=== PATIENT | female | born 1960 | race Caucasian/White ===

== ENCOUNTER 2023-11-17 11:55 | Inpatient (IN) | payer BC ==
[~2023-11-17] VITALS: Ht 162.6 cm; Wt 69.8 kg
[2023-11-17] VITALS (8 sets, daily range): BP systolic 120–134; BP diastolic 60–99; PULSE 65–74
[2023-11-17] MEDS ORDERED: Ondansetron 4 MG/2 ML VIAL IV ONE (12:30)
[2023-11-17] MEDS ORDERED: LR 1,000 ML IV ONE (12:30)
[2023-11-17] MEDS ORDERED: Morphine 4 MG/ML VIAL IV ONE (12:30)
[2023-11-17 12:38] LABS: BASO # 0.1 K/mm3 (0.0-0.2); BASO % 0.6 % (0.0-2.0); EOS % 0.1 % (0.0-4.0); GRAN # 9.6 K/mm3 (1.4-6.5); GRAN % 88.8 % (42.2-75.2); HEMATOCRIT 45.6 % (37.0-47.0); HEMOGLOBIN 14.8 g/dl (12.5-16.0); LYMPH # 0.7 K/mm3 (1.2-3.4); LYMPH % 6.2 % (20.0-51.0); MEAN CELL VOLUME 87 fl (80.0-100.0); MEAN CORPUSCULAR HEMOGLOBIN 28 pg (27-31); MEAN CORPUSCULAR HGB CONC 33 g/dl (33.0-37.0); MEAN PLATELET VOLUME 10.3 fl (7.4-10.4); MONO # 0.4 K/mm3 (0.1-0.6); PLATELET COUNT 247 K/mm3 (130-400); RED BLOOD COUNT 5.24 M/mm3 (4.10-5.30); REDCELL DISTRIBUTION WIDTH-CV 12.3 % (11.5-14.5)
[2023-11-17 12:58] LABS: ALBUMIN 4.1 g/dL (3.4-4.8); BILIRUBIN,TOTAL 1.1 mg/dL (0.2-1.2); C-REACTIVE PROTEIN 4.93 mg/dL (0.00-0.50); CALCIUM 9.6 mg/dL (8.4-10.2); CREATININE, serum 0.79 mg/dL (0.57-1.11); POTASSIUM 3.5 mEq/L (3.5-4.5); TOTAL PROTEIN 7.2 g/dl (6.2-8.1)
[2023-11-17] MEDS ORDERED: Iohexol 300 - 100 ML VIAL IV ONE (13:35)
[2023-11-17] MEDS ORDERED: NS 100 ML IV SCH (13:36)
[2023-11-17 14:01] LABS: PH 5.5 (5.0-8.5); URINE APPEARANCE CLOUDY (CLEAR/HAZY); URINE BLOOD NEGATIVE (NEGATIVE); URINE COLOR Dark Yellow (YELLOW); URINE GLUCOSE NEGATIVE (NEGATIVE); URINE KETONE 3+ (NEGATIVE); URINE NITRATE NEGATIVE (NEGATIVE); URINE PROTEIN(semi-quant) 1+ (NEGATIVE)
[2023-11-17 14:26] LABS: COLLECTION METHOD CLEAN CATCH
[2023-11-17] MEDS ORDERED: NS 1,000 ML IV SCH (15:45)
[2023-11-17] MEDS ORDERED: PRINIVIL10 MG PO (16:01)
[2023-11-17] MEDS ORDERED: ESTRACE0.5 MG PO (16:01)
[2023-11-17] MEDS ORDERED: ASPIRIN 81M81 MG/TA2 PO (16:05)
[2023-11-17] MEDS ORDERED: Glycopyrrolate 0.2 MG/ML 1 ML VIAL ONE (16:10)
[2023-11-17] MEDS ORDERED: Ondansetron 4 MG/2 ML VIAL ONE (16:10)
[2023-11-17] MEDS ORDERED: NS 20 ML IV ONE (16:10)
[2023-11-17] MEDS ORDERED: dexAMETHasone 10 MG/ML VIAL ONE (16:10)
[2023-11-17] MEDS ORDERED: Rocuronium 50 MG/5 ML Multi-Dose VIAL ONE (16:13)
[2023-11-17] MEDS ORDERED: fentaNYL 50 MCG/ML 2 ML VIAL ONE ×2 (16:13→18:02)
[2023-11-17] MEDS ORDERED: Midazolam 2 MG/2 ML VIAL ONE (16:13)
[2023-11-17] MEDS ORDERED: NS 250 ML IV ONE (16:15)
[2023-11-17] MEDS ORDERED: Phenylephrine 10 MG/ML VIAL ONE (16:15)
[2023-11-17] MEDS ORDERED: Naloxone 0.4 MG/ML VIAL IV PRN (19:00)
[2023-11-17] MEDS ORDERED: Morphine 4 MG/ML VIAL IV PRN (19:00)
[2023-11-17] MEDS ORDERED: Ibuprofen 400 MG TAB PO PRN (19:00)
[2023-11-17] MEDS ORDERED: LR 1,000 ML IV SCH (19:00)
[2023-11-17] MEDS ORDERED: oxyCODONE 5 MG TAB PO PRN (19:00)
[2023-11-17] MEDS ORDERED: *Potassium Replacement Protocol MC SCH ×2 (19:00→20:30)
[2023-11-17] MEDS ORDERED: Ondansetron 4 MG/2 ML VIAL IV PRN ×2 (19:00→19:15)
[2023-11-17] MEDS ORDERED: Ketorolac 30 MG/ML VIAL IV PRN (19:15)
[2023-11-17] MEDS ORDERED: hydrALAZINE 20 MG/ML 1 ML VIAL IV PRN (19:15)
[2023-11-17] MEDS ORDERED: fentaNYL 50 MCG/ML 1 ML SYRINGE/VIAL [PACU/SDC ONLY] IV PRN (19:15)
[2023-11-17] MEDS ORDERED: HYDROmorphone 1 MG/1 ML SYRINGE [PACU/SDC ONLY] IV PRN (19:15)
[2023-11-17] MEDS ORDERED: Acetaminophen 500 MG TAB PO SCH (20:00)
[2023-11-17] MEDS ORDERED: Potassium Chloride 100 ML IV SCH (20:30)
--- NOTE | 2023-11-17 21:30 | NUR ---
Patient arrived to the floor from PACU at 1940 per cart with PACU nurse Asia, A/O, reports pain is minimal with 3/10 as her score, admission assessment and intake done, medrec reviewed, hospital policies orientated, supportive at bedside. Patient denies nausea, with IV infusing well on left antecubital with LR via gravity, on room air, VSS, SCD's on, with midline dressing clean, dry and intact, ice chips given, potassium ongoing replacement, will continue to monitor.
[2023-11-18] VITALS (10 sets, daily range): BP systolic 97–108; BP diastolic 56–64; PULSE 55–69; TEMP 97.6–98.7
[2023-11-18 07:03] LABS: BASO % 0.4 % (0.0-2.0); EOS # 0.1 K/mm3 (0.0-0.7); EOS % 0.5 % (0.0-4.0); GRAN # 9.2 K/mm3 (1.4-6.5); GRAN % 88.1 % (42.2-75.2); LYMPH # 0.5 K/mm3 (1.2-3.4); LYMPH % 4.5 % (20.0-51.0); MEAN CELL VOLUME 86 fl (80.0-100.0); MEAN CORPUSCULAR HEMOGLOBIN 29 pg (27-31); MEAN CORPUSCULAR HGB CONC 33 g/dl (33.0-37.0); MEAN PLATELET VOLUME 10.3 fl (7.4-10.4); MONO # 0.6 K/mm3 (0.1-0.6); MONO % 6.2 % (1.7-9.3); PLATELET COUNT 192 K/mm3 (130-400); RED BLOOD COUNT 4.36 M/mm3 (4.10-5.30); REDCELL DISTRIBUTION WIDTH-CV 12.7 % (11.5-14.5)
[2023-11-18 07:14] LABS: HEMATOCRIT 37.6 % (37.0-47.0); HEMOGLOBIN 12.5 g/dl (12.5-16.0)
[2023-11-18 07:25] LABS: ALBUMIN 2.8 g/dL (3.4-4.8); CALCIUM 8.3 mg/dL (8.4-10.2); CREATININE, serum 0.78 mg/dL (0.57-1.11); PHOSPHOROUS 3.1 mg/dL (2.3-4.7); POTASSIUM 4.3 mEq/L (3.5-4.5)
--- NOTE | 2023-11-18 10:58 | NUR ---
Pt up in chair with mild discomfort in abdomen at this time. PT and OT worked with pt this AM and in the shower. Pt remains independent in the room with steady gait. Pt tolerating clear liquid deit well with no nausea or increased pain. Dressing to midline incision clean and dry. No needs at this time, call light within reach, will continue to monitor.
--- NOTE | 2023-11-18 11:16 | NUR ---
SIVAKUMAR met with patient and her Federico ([phone]) to complete initial assessment for discharge planning. Patient and live in [place], Patient sees Dr. Ramirez as her PCP and uses [facility] pharmacy. Patient denies having any DME. She states she has assigned DPOA to her and he is agreeable to provide a copy to hospital. Patient states she is independent and has no concerns of returning home at discharge. Discharge plan: Home
--- NOTE | 2023-11-18 14:12 | NUR ---
D: Maternity Floor Supervisor stopped by room on rounds A: Pt was resting and content with in the room. Pt has no needs right now. Both appreciated the visit. P: Maternity Floor Supervisor informed pt that if she needed anything from the solar designer area to let her nurse know. Maternity Floor Supervisor will follow up as needed.
--- NOTE | 2023-11-18 15:57 | NUR ---
Pt tolerating low fiber deit well with no nausea at this time, will continue to monitor.
--- NOTE | 2023-11-18 19:32 | NUR ---
report received from placido mcdowell. pt resting in bed watching tv. pt denies pain but reports "some twinges" but denies PRN medications right now. call light in reach. all needs met at this time.
--- NOTE | 2023-11-18 20:12 | NUR ---
shift assessment complete, see documentation. pt tolerated hs meds well. pt continues to report "small twinges of pain" and refuse PRN meds. call light in reach. all needs met at this time.
[2023-11-19] VITALS (12 sets, daily range): BP systolic 95–130; BP diastolic 54–78; PULSE 54–63; TEMP 98.2–98.8
--- NOTE | 2023-11-19 00:30 | NUR ---
pt reporting abd pain rated 5/10 with movement. prn oxycodone administered per orders. call light in reach. all needs met at this time.
[2023-11-19 07:08] LABS: BASO # 0.1 K/mm3 (0.0-0.2); BASO % 0.9 % (0.0-2.0); EOS # 0.2 K/mm3 (0.0-0.7); EOS % 2.9 % (0.0-4.0); GRAN # 5.2 K/mm3 (1.4-6.5); GRAN % 73.8 % (42.2-75.2); LYMPH % 14.7 % (20.0-51.0); MEAN CELL VOLUME 86 fl (80.0-100.0); MEAN CORPUSCULAR HGB CONC 33 g/dl (33.0-37.0); MEAN PLATELET VOLUME 10.7 fl (7.4-10.4); MONO # 0.5 K/mm3 (0.1-0.6); MONO % 7.3 % (1.7-9.3); PLATELET COUNT 167 K/mm3 (130-400); RED BLOOD COUNT 3.72 M/mm3 (4.10-5.30); REDCELL DISTRIBUTION WIDTH-CV 12.8 % (11.5-14.5)
[2023-11-19 07:24] LABS: HEMATOCRIT 31.9 % (37.0-47.0); HEMOGLOBIN 10.5 g/dl (12.5-16.0); MEAN CORPUSCULAR HEMOGLOBIN 28 pg (27-31)
--- NOTE | 2023-11-19 07:43 | NUR ---
0640 - Report received. Pt awake and sitting up in bed. Pt does not complain of pain at this time. IV abx running at this time. No other concerns at this time.
[2023-11-19 08:08] LABS: ALBUMIN 2.5 g/dL (3.4-4.8); CALCIUM 8.2 mg/dL (8.4-10.2); CREATININE, serum 0.79 mg/dL (0.57-1.11); MAGNESIUM 1.8 mg/dL (1.6-2.6); PHOSPHOROUS 1.7 mg/dL (2.3-4.7); POTASSIUM 4.2 mEq/L (3.5-4.5)
--- NOTE | 2023-11-19 10:22 | NUR ---
Pt sitting up in bed for morning assessment and med pass. Pt states her pain is controlled at a 2/10. Abx ended at time of med pass; IV now saline locked at this time. Pt states she has not yet had a BM or passing gas. Pt educated to update staff when this occurs. No other concerns at this time. Call light within reach.
--- NOTE | 2023-11-19 10:49 | NUR ---
PATIENT ALERT AND ORIENTED X4. VSS. PATIENT HERE FOR HEMICOLECTOMY. MIDLINE WITH RAJWINDER INTACT. IV TO LEFT AC INT AND FLUSHES WELL. PATIENT REPORTS PAIN 3/10, DENIES NEED FOR PAIN MEDICATION. NO FURTHER NEEDS. PATIENT TOLERATING PO. PATIENT TO AMBULATE HALLS.
[2023-11-19] MEDS ORDERED: NORCO 325 MG-51 TAB PO (11:15)
[2023-11-19] MEDS ORDERED: Docusate Sodium 100 MG CAP PO SCH (14:42)
--- NOTE | 2023-11-19 18:34 | NUR ---
report received from mireille mcdowell. pt resting in bed watching tv. pt denies pain. call light in reach. all needs met at this time.
--- NOTE | 2023-11-19 19:53 | NUR ---
shift assessment complete, see documentation. pt tolerated hs meds well. pt denies pain. pt requesting a sleep aid for the night. updated Roland YU. new order one time dose 6mg PO Melatonin. call light in reach. all needs met at this time.
[2023-11-19] MEDS ORDERED: Melatonin 3 MG TAB PO ONE (22:00)
[2023-11-20 00:09] VITALS: BP 97/59; PULSE 60; TEMP 98.5
[2023-11-20 01:42] VITALS: BP_SYST 97
[2023-11-20] MEDS ORDERED: Hydrocortisone 1% Cream 30 GM TUBE TP PRN (02:15)
[2023-11-20 03:50] VITALS: BP 123/68; PULSE 54; TEMP 98.2
[2023-11-20 04:39] VITALS: BP_SYST 123
[2023-11-20 06:31] LABS: BASO # 0.1 K/mm3 (0.0-0.2); BASO % 0.7 % (0.0-2.0); EOS # 0.5 K/mm3 (0.0-0.7); GRAN % 72.5 % (42.2-75.2); HEMOGLOBIN 10.7 g/dl (12.5-16.0); LYMPH % 15.1 % (20.0-51.0); MEAN CELL VOLUME 86 fl (80.0-100.0); MEAN CORPUSCULAR HEMOGLOBIN 28 pg (27-31); MEAN CORPUSCULAR HGB CONC 33 g/dl (33.0-37.0); MEAN PLATELET VOLUME 10.4 fl (7.4-10.4); MONO # 0.3 K/mm3 (0.1-0.6); MONO % 4.6 % (1.7-9.3); PLATELET COUNT 206 K/mm3 (130-400)
[2023-11-20 06:43] LABS: HEMATOCRIT 32.6 % (37.0-47.0)
[2023-11-20 06:54] LABS: ALBUMIN 2.5 g/dL (3.4-4.8); CALCIUM 8.3 mg/dL (8.4-10.2); CREATININE, serum 0.7 mg/dL (0.57-1.11); MAGNESIUM 1.9 mg/dL (1.6-2.6); PHOSPHOROUS 3.3 mg/dL (2.3-4.7); POTASSIUM 3.8 mEq/L (3.5-4.5)
--- NOTE | 2023-11-20 06:56 | NUR ---
Received report. Pt is awake, sitting up in bed. Pt states that pain is at 3/10 and tolerable at this time. Pt complains of "itchy" feeling on back and R shoulder blade. Hydrocortisone cream applied at this time. No other concerns at this time. Call light within reach.
[2023-11-20] MEDS ORDERED: Potassium Bicarbonate/Citrate 20 MEQ Effervescent TAB PO ONE (07:15)
--- NOTE | 2023-11-20 07:49 | NUR ---
Pt awake, sitting up in bed, eating breakfast during morning assessment and med pass. Pt complains of 3/10 pain at this time, but states it is well controlled. Pt states she feels that she is ready to discharge today, passing gas with no BM yet. No other concerns at this time. Call light within reach.
[2023-11-20 08:00] VITALS: BP 133/65; PULSE 52; TEMP 97.8
[2023-11-20 09:46] VITALS: BP_SYST 133
--- NOTE | 2023-11-20 10:11 | NUR ---
0945 - Pt requested incision to be covered on discharge. Guaze dressing applied. Incision edges approximated. No redness, drainage, or heat noted at the incision site.
--- NOTE | 2023-11-20 10:26 | NUR ---
Reviewed discharge instructions with pt and spouse. All questions answered. Pt escorted out via wheelchair at this time
== END 2023-11-20 10:26 | disposition home or self-care (01) | DRG 331 ==
LOC: COL.ER 11:55 → SURG 15:28
PROVIDERS: Family Medicine; Surgery; ADMIT Internal Medicine
PROC: 0DTF0ZZ Resection of Right Large Intestine, Open Approach (ICD-10-PCS; principal; 2023-11-17 16:30)
DX: K56.2 Volvulus (principal); K56.609 Unspecified intestinal obstruction, unspecified as to partial versus complete obstruction; K59.00 Constipation, unspecified; I10 Essential (primary) hypertension; Z90.710 Acquired absence of both cervix and uterus; Z90.49 Acquired absence of other specified parts of digestive tract; Z79.899 Other long term (current) drug therapy; Z23 Encounter for immunization
CPT/HCPCS: A9284; J0690; J1100; J1650; J1885; J2250; J2270; J2371; J2405; J2543; J2704; J3010; J3480; J7030; J7050; J7120; Q9967

== ENCOUNTER → 2024-02-21 | Outpatient (CLI) | payer MEDICARE, BC ==
[~2024-02-21] MED LIST: ASPIRIN 81M81 MG/TA2 PO; ESTRACE0.5 MG PO; NORCO 325 MG-51 TAB PO; PRINIVIL10 MG PO
== END ==
LOC: MC.RAD 07:45
DX: Z12.31 Encounter for screening mammogram for malignant neoplasm of breast (principal)